=== PATIENT | male | born 1975 | race Caucasian/White ===

== ENCOUNTER → 2019-09-12 08:21 | Outpatient (CLI) | payer OTHER, SELFPAY ==
--- NOTE | 2019-09-12 08:42 | US_ITS ---
PROCEDURE: US ABDOMEN LIMITED CLINICAL INDICATION: EPIGASTRIC ABD PAIN COMPARISON: No exams were available for comparison FINDINGS: PANCREAS: Very poor visualization. Cannot adequately assess the pancreas. CT may be of further value if clinically desired. LIVER: Fatty liver. No discrete mass or biliary dilatation. There is appropriate direction of blood flow within the non dilated portal vein. RIGHT KIDNEY: Unremarkable. Normal size and echogenicity. No hydronephrosis GALLBLADDER: No gallstones, gallbladder wall thickening, pericholecystic fluid, or biliary dilatation. IMPRESSION: Fatty liver. Poor visualization of the pancreas. Otherwise negative right upper quadrant ultrasound Dictated by: Moncho Chavez MD 09/12/2019 16:47 Electronically signed by Moncho Chavez MD in [place] 09/12/2019 16:47
== END ==
PROVIDERS: PCP Emergency Medicine; Visit Provider Family Medicine
DX: R10.13 Epigastric pain (principal)
CPT/HCPCS: 76705

== ENCOUNTER 2020-12-25 15:23 | Emergency (ER) | payer OTHER, SELFPAY ==
--- NOTE | 2020-12-25 15:40 | XR_ITS ---
PROCEDURE: XR FOOT RT MIN 3V Referring Doctor: Radha Nolen Patient Age:45Y CLINICAL INDICATION: PAIN right foot pain for a few days s COMPARISON: No exams were available for comparison TECHNIQUE: 3 View AP, Oblique, Lateral FINDINGS: Right foot intact with no fracture or dislocation evident. No lytic or blastic change. There is normal mineralization.The joint spaces are well-preserved with normal relationships no significant degenerative/arthritic changes. No erosive changes evident. . No periosteal reaction.. No significant soft tissue findings but only question some mild swelling at the foot but equivocal IMPRESSION: No acute findings. Right foot appears intact but unremarkable on plain film Dictated by: Jonathan Del Cid MD 12/25/2020 20:37 Jonathan Del Cid MD in [place] 12/25/2020 20:37
[2020-12-25 16:05] VITALS: BP 148/97; PULSE 63; RESP 19; TEMP 37; O2SAT 100; BMI 26.8
--- NOTE | 2020-12-25 16:09 | HMH.EDUTC ---
[facility] [place] Disposition Clinical Impression: Pseudogout Disposition: Home, Self-Care Condition on Discharge: Good Instructions: DI for Pseudogout, Colchicine Additional Instructions: Take medication as prescribed FOllow up with Family Doctor if no improvement or any worsening of symptoms Return if needed Straight to ER if any life threatening symptoms Prescriptions: Colchicine [Colcrys 0.6mg tablet] 0.6 mg PO DIRECTED #3 tab Prescription Printed Referrals: Robert Corbett MD [Primary Care Provider] - As needed Time of Disposition: 17:30 Medical Decision Making - Charles Inquiry Pt receiving controlled substance: No Charles was queried for this patient: No Vital Signs: 12/25/20 16:05 12/25/20 17:51 Temperature 98.6 F 98.6 F Temperature Source Oral Pulse Rate 63 Pulse Rate [Right Brachial] 63 Respiratory Rate 19 19 Blood Pressure 148/97 H Blood Pressure [Right Arm] 148/97 H Blood Pressure Mean [Right Arm] 114 Blood Pressure Source [Right Arm] Automatic Cuff Blood Pressure Position [Right Arm] Sitting 02 Sat by Pulse Oximetry 100 Oxygen Delivery Method Room Air - Lab Data Lab results reviewed: Yes: I reviewed the patient's lab results. Lab Results 12/25/20 16:00: Uric Acid 7.9 Orders (Tests/Meds): ED MEDICATIONS Discontinued Medications Generic Name Dose Route Start Last Admin Trade Name Helga PRN Reason Stop Dose Admin Ketorolac Tromethamine 60 mg 12/25/20 17:26 12/25/20 17:30 Ketorolac 60mg/2ml Vial IM 12/25/20 17:27 60 mg ONCE ONE Administration Methylprednisolone Sodium Succinate 125 mg 12/25/20 17:26 12/25/20 17:30 Methylprednisolone Sod Succ 125mg Vial IM 12/25/20 17:27 125 mg ONCE ONE Administration ORDERS Category Date Time Status XR foot RT min 3V Stat Exams 12/25/20 15:40 Taken - Radiology Data #1 Image(s): Foot/Toes Image Reviewed: Yes I reviewed the patient's radiology image Preliminary Findings: No Fracture Seen Medical Decision Narrative: Patient reports pain much improved after injections [facility] [place] HPI - General Stated complaint: WC 0220 @1100 injured R foot Time Seen by Provider: 12/25/20 16:09 Mode of Arrival: Ambulatory Source of Information: Patient Limitations: No Limitations Description of Symptoms (Recalled from Triage Doc. by RN): PATIENT C/O PAIN IN RIGHT FOOT SINCE SUNDAY. 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 or not but wanted to come in and get it checked - Related Data Home Medications Medication Instructions Recorded Confirmed Pantoprazole Sodium [Protonix 40mg 40 mg PO DAILY 08/10/19 12/25/20 tablet] Previous Rx's Medication Instructions Recorded Colchicine [Colcrys 0.6mg tablet] 0.6 mg PO DIRECTED #3 tab 12/25/20 Allergies Allergy/AdvReac Type Severity Reaction Status Date / Time Sulfa (Sulfonamide Allergy Verified 12/25/20 16:08 Antibiotics) - Worker's Comp Is this a Worker's Comp case?: No [facility] History - Hepatitis A Screen Drug use history?: No High risk sexual behaviors?: No History of sexually transmitted infection?: No Currently employed?: No Childcare worker?: No Do you have indoor plumbing?: Yes Do you have electricity?: Yes Attestation statement:: This patient has been screened for Hepatitis A risk factors. I have reviewed the patient's past medical history: Yes - Social History Smoking Status: Current every day smoker Tobacco Type: cigarettes # Packs/Day (cigaret
[2020-12-25 17:12] LABS: Uric Acid 7.9 mg/dl (3.5-8.5)
[2020-12-25 17:51] VITALS: BP 148/97; PULSE 63; RESP 19; TEMP 37; O2SAT 100
== END 2020-12-25 17:52 | disposition home or self-care (01) ==
PROVIDERS: Emergency Provider Nurse Practitioner; PCP Family Medicine
DX: M11.1 Familial chondrocalcinosis (principal); F17.210 Nicotine dependence, cigarettes, uncomplicated
CPT/HCPCS: 73630; 84550; 96372; 99202; G0463